=== PATIENT | female | born 1965 | race Caucasian/White ===

== ENCOUNTER 2016-07-18 06:24 | Emergency (ER) | payer OTHER ==
[~2016-07-18] VITALS: Ht 154.9 cm; Wt 60.0 kg
[~2016-07-18 06:24] MED LIST: AMBI5TAB PO; LEXA5TAB PO; LORTA5 PO; ROBA750T3 PO
[2016-07-18] MEDS ORDERED: ROSU10 PO (06:35)
[2016-07-18] MEDS ORDERED: AMBI10TA PO (06:35)
[2016-07-18] MEDS ORDERED: HYDR-3535 PO (06:35)
[2016-07-18] MEDS ORDERED: PLAV75TA29 PO (06:35)
[2016-07-18] MEDS ORDERED: AMLO5TAB2 PO (06:35)
[2016-07-18] MEDS ORDERED: ALPR.5 PO (06:35)
[2016-07-18 06:36] VITALS: BP 145/82; PULSE 95; RESP 16; TEMP 97.5; O2SAT 99
[2016-07-18] MEDS ORDERED: SODIUM CHLORIDE 0.9% FLUSH 10 ML FLUSH IVF PRN (06:45)
[2016-07-18] MEDS ORDERED: MORPHINE SULFATE 4 MG/ML INJ IV PUSH ONE (06:45)
--- NOTE | 2016-07-18 06:49 | PD ---
HPI Chief Complaint: Fall Time Seen by Provider: 06:42 Travel History International Travel<30 days: No Contact w/Intl Traveler<30days: No Traveled to known affect area: No History of Present Illness HPI 50-year-old female with history of previous back surgery and back pains, presents to the ER today because she states that she was moving a pot of [employer] work this morning when she slipped and fell onto her right hip area, complaining of 8 out 10 right hip pains and lower back pains. She denies any head injury or loss of consciousness or any other injuries. She states that she was afraid to get up because of the pain. Modifying Factors: None Associated Signs & Symptoms: Fall, right hip pain Risk Factors: None PFSH Past Medical History Anxiety: Yes Cardiovascular Problems: Yes High Cholesterol: Yes Diminished Hearing: No Gastrointestinal Disorders: Yes (Celiac's disease) Hypertension: Yes Kidney Stones: Yes Musculoskeletal: Yes (BACK PAIN) Immunizations Current: No Myocardial Infarction: Yes (1994) ?: Not Menopausal: Yes Past Surgical History Cholecystectomy: Yes Gynecologic Surgery: Yes (hysterectomy) Hysterectomy: Yes Social History Alcohol Use: No Tobacco Use: No Substance Use: No Allergies-Medications (Allergen,Severity, Reaction): Coded Allergies: Aspirin (Verified Allergy, Severe, RASH, 07/18/16) Dilaudid (Verified Allergy, Severe, Confusion, 07/18/16) Ibuprofen (Verified Allergy, Severe, 07/18/16) Naprosyn (Verified Allergy, Severe, 07/18/16) Naproxen (Verified Allergy, Severe, 07/18/16) Reported Meds & Prescriptions Reported Meds & Active Scripts Active Reported Lortab (Hydrocodone-Acetaminophen) 10-325 Mg Tab 1 Tab PO Q8HR PRN Ambien (Zolpidem Tartrate) 10 Mg Tab 10 Mg PO HS PRN Xanax (Alprazolam) 0.5 Mg Tab 0.5 Mg PO BID PRN Amlodipine (Amlodipine Besylate) 5 Mg Tab 5 Mg PO DAILY Crestor (Rosuvastatin Calcium) 10 Mg Tab 10 Mg PO DAILY Plavix (Clopidogrel Bisulfate) 75 Mg Tab 75 Mg PO DAILY Review of Systems Except as stated in HPI: all other systems reviewed are Neg Physical Exam Narrative GENERAL: Well-developed elderly white female patient not acute distress. Awake and oriented 3. SKIN: Focused skin assessment warm/dry. HEAD: Atraumatic. Normocephalic. EYES: Pupils equal and round. No scleral icterus. No injection or drainage. ENT: No nasal bleeding or discharge. Mucous membranes pink and moist. NECK: Trachea midline. No JVD. CARDIOVASCULAR: Regular rate and rhythm. No murmur appreciated. RESPIRATORY: No accessory muscle use. Clear to auscultation. Breath sounds equal bilaterally. GASTROINTESTINAL: Abdomen soft, non-tender, nondistended. Hepatic and splenic margins not palpable. MUSCULOSKELETAL: No obvious deformities. No clubbing. No cyanosis. No edema. BACK: No CVA tenderness. No rash. Mild tenderness to palpation of the right sacral area. Pelvis is stable and nontender to palpation. Nontender range of motion at the right hip and bilateral hip is nontender to palpation.. NEUROLOGICAL: Awake and alert. No obvious cranial nerve deficits. Motor grossly within normal limits. Normal speech. PSYCHIATRIC: Appropriate mood and affect; insight and judgment normal. Data Data Last Documented VS Vital Signs Date Time Temp Pulse Resp B/P Pulse Ox O2 Delivery O2 Flow Rate FiO2 07/18/16 06:36 97.5 95 16 145/82 99 Orders Hip, Uni(Ap&Lat) W Ap Pelvis (07/18/16 06:42) Iv Access Insert/Monitor (07/18/16 06:42) Ecg Monitoring (07/18/16 06:42) Morphine Inj (Morphine Inj) (07/18/16 06:45) Sodium Chloride 0.9% Flush (Ns Flush) (07/18/16 06:45) Sacrum (07/18/16 ) MDM Medical Decision Making Medical Screen Exam Complete: Yes Emergency Medical Condition: Yes Medical Record Reviewed: Yes Differential Diagnosis Slip and fall, right hip pain and sacral area painsfractures versus contusions Narrative Course X-rays were ordered for the patient and IV morphine was ordered for pain. Physician Communication Physician Communication Case is signed out to oncoming physician, Dr. Sinclair, at 7 AM pending x-rays. Diagnosis Primary Impression: Fall due to wet surface Additional Impression: Contusion of hip, right Condition: Stable Helder Null MD July 18, 2016 06:49
--- NOTE | 2016-07-18 07:38 | RADRPT ---
EXAM DATE/TIME: 07/18/2016 07:17 [facility] COMPARISON: No previous studies available for comparison. INDICATIONS : Patient states fell this morning landing on hip and back. Pain low back, pelvis, and right hip. MEDICAL HISTORY : None. SURGICAL HISTORY : None. ENCOUNTER: Initial ACUITY: 1 day PAIN SCORE: 10/10 LOCATION: Right hip FINDINGS: AP view of the pelvis with 2 views of the right hip joint demonstrate no fracture or dislocation. Min eralization is within normal limits. There are small acetabular and femoral head osteophytes. Clips a nd alex overlie the left pelvis and right iliac bone. No soft tissue abnormality is identified. CONCLUSION: No acute abnormality is identified. There is mild right hip joint osteoarthritis. Scott Rogers MD on July 18, 2016 at 7:34 Board Certified Radiologist. This report was verified electronically.
--- NOTE | 2016-07-18 07:39 | RADRPT ---
EXAM DATE/TIME: 07/18/2016 07:17 [facility] COMPARISON: No previous studies available for comparison. INDICATIONS : Patient states fell this morning landing on low back, and right hip. MEDICAL HISTORY : None. SURGICAL HISTORY : None. ENCOUNTER: Initial ACUITY: 1 day PAIN SCORE: 10/10 LOCATION: Right hip and low back. FINDINGS: Two-view examination of the sacrum demonstrates no evidence of fracture or malalignment. The sacral ala and foramina appear symmetric and intact. The soft tissues are within normal limits. Clips overl ie the pelvis. There is facet hypertrophy at L4-L5 and L5-S1. There is mild osteoarthritis at the hip joints bilaterally. CONCLUSION: No acute abnormality is identified. Scott Rogers MD on July 18, 2016 at 7:36 Board Certified Radiologist. This report was verified electronically.
--- NOTE | 2016-07-18 07:48 | PD ---
Physical Exam Date Seen by Provider: July 18, 2016 Time Seen by Provider: 07:47 Narrative 50-year-old female came to the emergency room after falling at work. She was seen by the previous ER physician. Please refer to her history and physical for details. Sign out to me was to follow-up on the x-ray that was ordered. X- rays are within normal limit as per the radiologist. I went and saw the patient and let her know about the x-ray report. Patient was slowly asked to stand up and take a few steps. She did well. She went to the restroom currently. I have let her know that she will be discharged home. She will get 2 days a work note. Data Data Last Documented VS Vital Signs Date Time Temp Pulse Resp B/P Pulse Ox O2 Delivery O2 Flow Rate FiO2 07/18/16 06:36 97.5 95 16 145/82 99 Orders Hip, Uni(Ap&Lat) W Ap Pelvis (07/18/16 06:42) Iv Access Insert/Monitor (07/18/16 06:42) Ecg Monitoring (07/18/16 06:42) Morphine Inj (Morphine Inj) (07/18/16 06:45) Sodium Chloride 0.9% Flush (Ns Flush) (07/18/16 06:45) Sacrum (07/18/16 ) MDM Supervised Visit with DILEEP: No Diagnosis Primary Impression: Fall due to wet surface Qualified Code: W01.0XXA - Fall due to wet surface, initial encounter Additional Impression: Contusion of hip, right Referrals: Primary Care Physician 2 days Departure Forms: Tests/Procedures, Work Release Enter return to work date: July 20, 2016 Additional Instruction: Please return to the ER if the condition worsens or any other new concerns. Eyes the area of soreness alternating with warm compresses. Take Motrin/ ibuprofen/Advil [id number] for pain. Follow-up with your primary care in couple days. Med/Other Pt SpecificInfo: No Change to Meds Disposition: 01 DISCHARGE HOME Condition: Stable Michelle Sinclair MD July 18, 2016 07:48
== END 2016-07-18 08:46 | disposition home or self-care (01) ==
LOC: NEPC 06:24
DX: S70.01XA Contusion of right hip, initial encounter (principal); M54.5 Low back pain; I10 Essential (primary) hypertension; E78.00 Pure hypercholesterolemia, unspecified; I25.2 Old myocardial infarction; W01.0XXA Fall on same level from slipping, tripping and stumbling without subsequent striking against object, initial encounter; Y99.0 Civilian activity done for income or pay; Z86.59 Personal history of other mental and behavioral disorders; Z86.79 Personal history of other diseases of the circulatory system; Z87.19 Personal history of other diseases of the digestive system; Z87.442 Personal history of urinary calculi; Z87.39 Personal history of other diseases of the musculoskeletal system and connective tissue
CPT/HCPCS: 72220; 73502; 96374; 99284; J2270